=== PATIENT | female | born 1990 | race Caucasian/White ===

== ENCOUNTER 2016-04-02 15:43 | Emergency (ER) | payer BC ==
[~2016-04-02] VITALS: Ht 175.3 cm; Wt 76.3 kg
[2016-04-02 15:48] VITALS: Ht 175.3 cm; Wt 76.3 kg
[2016-04-02] MEDS ORDERED: LAMO150T PO (17:30)
[2016-04-02] MEDS ORDERED: AMPH10TA2 PO (17:30)
[2016-04-02] MEDS ORDERED: LISD70CA PO (17:30)
[2016-04-02 17:47] LABS: URINE APPEARANCE CLEAR (CLEAR); URINE BILIRUBIN NEG (NEG); URINE COLOR YELLOW; URINE NITRITE NEG (NEG); URINE SPECIFIC GRAVITY 1.001 (1.000-1.030); UROBILINOGEN NEG (NEG); ZZUR CULT IF INDIC CLEAN CATCH NO
[2016-04-02 17:49] LABS: MANUAL MICROSCOPIC REQUIRED? NO; REVIEW REQ? NO
[2016-04-02] MEDS ORDERED: FLUCONAZOLE 50 MG TAB PO ONE (18:30)
[2016-04-02] MEDS ORDERED: FLUC150T PO (18:40)
--- NOTE | 2016-04-02 18:40 | EMERGENCY ROOM VISIT NOTE ---
History First contact with patient: 16:50 Chief Complaint: RASH Stated Complaint: MEDICATION REACTION, DRY/ITCHY EYES, RASH History of Present Illness The patient is a 25 year old female who presents to the Emergency Room with complaints of dry eyes and mouth as well as a possible yeast infection. The patient reports that she is taking Lamictal and has been titrating her dose up for the past 6 weeks. The patient recently switched to 150 mg per day. She states that since then, she has felt that her eyes were dry and the skin around her mouth has been dry. She reports she looked up the side effects online and was concerned because Lamictal can cause rashes. The patient also reports that she has had vaginal itching and irritation consistent with prior yeast infections. She has been taking Azo [id number] for the symptoms without relief. She is sexually active but states that she uses condoms and does not believe that she has any STIs. She denies any abnormal vaginal discharge or abdominal pain. She denies fevers/chills. The patient does report a history of eczema. Review of Systems A complete 10-point Review of Systems was discussed with the patient, with pertinent positives and negatives listed in the History of Present Illness. All remaining Review of Systems questions can be considered negative unless otherwise specified. Past Medical/Surgical History Medical Problems: (1) History of migraine (2) History of mood disorder Social History Smoking Status: Never Smoker Alcohol Use: occasionally Drug Use: none Marital Status: single Housing Status: lives with roommate Occupation Status: [employer] student Current/Historical Medications Scheduled Fluconazole (Diflucan), 150 MG PO DAILY Lamotrigine (Lamictal), 150 MG PO DAILY Lisdexamfetamine Dimesylate (Vyvanse), 70 MG PO DAILY Scheduled PRN Amphetamine-Dextroamphetamine 10MG (Adderall 10MG), 10 MG PO DAILY PRN for Allergies Coded Allergies: No Known Allergies (Unverified , 05/09/15) Physical Exam Vital Signs Date Time Temp Pulse Resp B/P Pulse Ox O2 Delivery O2 Flow Rate FiO2 04/02/16 18:47 36.9 78 18 136/90 99 04/02/16 18:31 78 18 136/90 99 Room Air 04/02/16 15:48 36.9 92 16 126/90 97 Room Air Physical Exam VITALS: Vitals are noted on the nurse's note and reviewed by myself. Vital signs stable. GENERAL: This is a 25-year-old female, in no acute distress, nondiaphoretic, well-developed well-nourished. SKIN: Capillary reflex less than 2 seconds. The skin of the face does appear to be slightly dry. HEENT: Normocephalic. PERRLA. No conjunctival injection. EOMI. Nares patent. Mucous membranes moist. Neck is supple without nuchal rigidity. HEART: Regular rate and rhythm without murmurs gallops or rubs. LUNGS: Clear to auscultation. ABDOMEN: Soft, nontender to palpation. PELVIC: External genitalia unremarkable. No abnormal lesions. There is white discharge within the vaginal vault. No evidence of cervicitis. NEURO: Patient was alert and oriented to person place and time. Medical Decision & Procedures Laboratory Results Test 04/02/16 17:30 04/02/16 18:18 Urine Color YELLOW Urine Appearance CLEAR (CLEAR) Urine pH 6.0 (4.5-7.5) Urine Specific [place] 1.001 (1.000-1.030) Urine Protein NEG (NEG) Urine Glucose (UA) NEG (NEG) Urine Ketones NEG (NEG) Urine Occult Blood NEG (NEG) Urine Nitrite NEG (NEG) Urine Bilirubin NEG (NEG) Urine Urobilinogen NEG (NEG) Urine Leukocyte Esterase NEG (NEG) Urine Test NEG (NEG) Date/Time Source Procedure Growth Status 04/02/16 18:18 Vaginal Swab Trichomonas Preparation - Final Complete Medications Administered Medications (Trade) Dose Ordered Sig/Benjamin Route Start Time Stop Time Status Last Admin Dose Admin Fluconazole (Diflucan Tab) 150 mg NOW ONCE PO 04/02/16 18:30 04/02/16 18:32 DC 04/02/16 18:46 150 MG Medical Decision Differential diagnosis includes eczema, Rick-Sal syndrome, allergic reaction, sexual transmitted infection, vaginal candidiasis, Trichomonas, bacterial vaginosis, among others. The patient was evaluated as above. She has dry facial skin consistent with an eczema flare. There is no evidence of a concerning rash, but the patient was encouraged to return if she has any new rashes or worsening symptoms. Pelvic exam did show evidence of vaginal candidiasis and the patient will be placed on Diflucan. Cultures were obtained and are pending. She was encouraged to follow -up with the prescriber of the Lamictal for any concerns regarding side effects. She verbalized understanding of my assessment and treatment plan and was discharged home in good condition. Impression Primary Impression: Vaginal candidiasis Additional Impression: Eczema Departure Information Dispostion Home / Self-Care Condition GOOD Prescriptions Fluconazole (DIFLUCAN) 150 Mg Tab 150 MG PO DAILY for 1 Day, #1 TAB Prov: Spring Chavez ., DONTAE 04/02/16 Referrals No Doctor, Assigned (PCP) Patient Instructions [facility], [facility] [place] Additional Instructions Follow-up with your psych provider regarding your Lamictal. Return immediately if you have any rashes. Take the second dose of Diflucan in 3 days if you have persistent yeast infection symptoms.
[2016-04-02 18:47] VITALS: BP 136/90; PULSE 78; TEMP 36.9; O2SAT 99
[2016-04-05 01:55] LABS: CHLAMYDIA TRACH RNA*** NOT DETECTED (NOT DETECTED); GC (NEIS GONORRHOEAE)RNA** NOT DETECTED (NOT DETECTED)
== END 2016-04-02 18:49 | disposition home or self-care (01) ==
LOC: C.EDB 15:45 → C.EDC 18:49
DX: B37.3 Candidiasis of vulva and vagina (principal); L30.9 Dermatitis, unspecified

== ENCOUNTER 2016-06-16 12:33 | Emergency (ER) | payer BC ==
[~2016-06-16] VITALS: Ht 172.7 cm; Wt 72.1 kg
[~2016-06-16 12:33] MED LIST: AMPH10TA2 PO; LAMO150T32 PO; LISD70CA PO
[2016-06-16 12:44] VITALS: Ht 172.7 cm; Wt 72.1 kg
[2016-06-16] MEDS ORDERED: SODIUM CHLORIDE 0.9% 1000ML 1,000 ML IV STA (14:53)
[2016-06-16] MEDS ORDERED: ACETAMINOPHEN 325 MG TAB PO STA (14:53)
[2016-06-16] MEDS ORDERED: IBUPROFEN 800 MG TAB PO STA (14:53)
[2016-06-16] MEDS ORDERED: IBUPROFEN 600 MG TAB ONE (15:07)
[2016-06-16] MEDS ORDERED: IBUPROFEN 200 MG TAB ONE (15:07)
[2016-06-16 15:40] LABS: MANUAL MICROSCOPIC REQUIRED? NO; REVIEW REQ? YES; URINE APPEARANCE CLOUDY (CLEAR); URINE BILIRUBIN NEG (NEG); URINE COLOR YELLOW; URINE EPITHELIAL CELL AUTO 20-30 /lpf (0-5); URINE NITRITE POS (NEG); URINE PH 5.5 (4.5-7.5); URINE SPECIFIC GRAVITY 1.013 (1.000-1.030); UROBILINOGEN NEG (NEG); ZZUR CULT IF INDIC CLEAN CATCH YES
[2016-06-16 15:47] LABS: BASO % 0.2 %; BASO ABS # 0.02 K/uL (0-0.2); COMPLETE YES; HEMATOCRIT 34.4 % (37-47); IG% 0.3 %; LYMPH ABS # 1.07 K/uL (1.2-3.4); MEAN CELL VOLUME 87.3 fL (80-100); MEAN CORPUSCULAR HEMOGLOBIN 29.9 pg (25-34); MEAN CORPUSCULAR HGB CONC 34.3 g/dl (32-36); MEAN PLATELET VOLUME 11.2 fL (7.4-10.4); MONO % 10.9 %; NEUT % 79.6 %; PLATELET COUNT 165 K/uL (130-400); RED BLOOD COUNT 3.94 M/uL (4.2-5.4); WHITE BLOOD COUNT 11.83 K/uL (4.8-10.8)
--- NOTE | 2016-06-16 16:00 | DIAGNOSTIC IMAGING REPORT ---
CHEST 2 VIEWS ROUTINE CLINICAL HISTORY: flu like sx cough COMPARISON STUDY: 05/09/2015 FINDINGS: The bones soft tissues and hemidiaphragms are normal. The cardiomediastinal silhouette is normal. The lungs are clear. The pulmonary vasculature is normal. IMPRESSION: Negative chest. Electronically signed by: Alton Ríos M.D. 06/16/2016 3:59 PM Dictated Date/Time: 06/16/2016 3:58 PM
[2016-06-16 16:04] LABS: BUN/CREATININE RATIO 5.1 (10-20); CALCIUM 8.5 mg/dl (8.5-10.1); CREATININE 0.78 mg/dl (0.60-1.20); POTASSIUM 3.4 mmol/L (3.5-5.1)
[2016-06-16 16:07] LABS: ALB/GLOB RATIO 1.1 (0.9-2)
--- NOTE | 2016-06-16 16:20 | EMERGENCY ROOM VISIT NOTE ---
History First contact with patient: 14:36 Chief Complaint: FEVER Stated Complaint: CHILLS,FEVER,DEL RIO,BACK PAIN,WEAKNESS,PAIN UNDER RIBS History of Present Illness The patient is a 25 year old female who presents to the Emergency Room with complaints of flulike symptoms which started yesterday and worsened this morning. The patient reports that she has had body aches, back pain, discomfort under her ribs, and pain in her legs. She reports that she has had fevers up to 100F. She does report some nasal congestion, but denies any coughing, chest pain, shortness of breath, sore throat or earaches. The patient reports that she has been slightly lightheaded, but has had a decreased appetite and has not had much to eat or drink. She rates her discomfort a 10/ 10. She denies any nausea, vomiting, urinary symptoms, change in bowel movements, or neck pain/stiffness. The patient does report a history of urinary tract infections. She has not taken any medication for her pain or fevers. Review of Systems A complete 10-point Review of Systems was discussed with the patient, with pertinent positives and negatives listed in the History of Present Illness. All remaining Review of Systems questions can be considered negative unless otherwise specified. Past Medical/Surgical History Medical Problems: (1) History of migraine (2) History of mood disorder Social History Smoking Status: Never Smoker Alcohol Use: occasionally Drug Use: none Marital Status: single Housing Status: lives with roommate Occupation Status: [employer] student Current/Historical Medications Scheduled Lamotrigine (Lamictal), 150 MG PO DAILY Lisdexamfetamine Dimesylate (Vyvanse), 70 MG PO DAILY Sulfa/Trimethoprim (Bactrim Ds 800MG/160MG), 1 TAB PO BID Scheduled PRN Amphetamine-Dextroamphetamine 10MG (Adderall 10MG), 10 MG PO DAILY PRN for Allergies Coded Allergies: No Known Allergies (Unverified , 06/16/16) Physical Exam Vital Signs Date Time Temp Pulse Resp B/P Pulse Ox O2 Delivery O2 Flow Rate FiO2 06/16/16 17:36 36.7 88 18 110/72 22 06/16/16 17:05 36.7 88 18 110/78 98 Room Air 06/16/16 16:07 37.9 92 20 99 Room Air 06/16/16 14:41 118 18 118/78 06/16/16 12:44 38.2 123 18 121/85 99 Room Air Physical Exam VITALS: Vitals are noted on the nurse's note and reviewed by myself. Vital signs stable. GENERAL: This is a 25-year-old female, in no acute distress, nondiaphoretic, well-developed well-nourished. SKIN: Capillary reflex less than 2 seconds. EYES: PERRLA, EOMs intact. No conjunctival injection. EARS: Tympanic membranes pearly ramos bilaterally, no erythema or effusions. MOUTH: Mucous members moist. Tonsils are not enlarged or erythematous. NECK: Supple, no lymphadenopathy. No meningismus. HEART: Regular rate and rhythm without murmurs gallops or rubs. LUNGS: Clear to auscultation bilaterally without wheezes, rales or rhonchi. No retractions or accessory muscle use. ABDOMEN: Positive bowel sounds x 4. Soft, nondistended, no tenderness to palpation. No guarding or rebound tenderness. MUSCULOSKELETAL: No significant tenderness to palpation. NEURO: Patient was alert and oriented to person place and time. Medical Decision & Procedures ER Provider Diagnostic Interpretation: CHEST 2 VIEWS ROUTINE CLINICAL HISTORY: flu like sx cough COMPARISON STUDY: 05/09/2015 FINDINGS: The bones soft tissues and hemidiaphragms are normal. The cardiomediastinal silhouette is normal. The lungs are clear. The pulmonary vasculature is normal. IMPRESSION: Negative chest. Laboratory Results 06/16/16 15:40 Red Blood Count 3.94, Mean Corpuscular Volume 87.3, Mean Corpuscular Hemoglobin 29.9, Mean Corpuscular Hemoglobin Concent 34.3, Mean Platelet Volume 11.2, Neutrophils (%) (Auto) 79.6, Lymphocytes (%) (Auto) 9.0, Monocytes (%) (Auto) 10.9, Eosinophils (%) (Auto) 0.0, Basophils (%) (Auto) 0.2, Neutrophils # (Auto ) 9.42, Lymphocytes # (Auto) 1.07, Monocytes # (Auto) 1.29, Eosinophils # (Auto ) 0.00, Basophils # (Auto) 0.02 06/16/16 15:40 Test 06/16/16 15:00 06/16/16 15:15 06/16/16 15:40 Influenza Type A Antigen Neg for Influ A (NEG) Influenza Type B Antigen Neg for Influ B (NEG) Urine Color YELLOW Urine Appearance CLOUDY (CLEAR) Urine pH 5.5 (4.5-7.5) Urine Specific [place] 1.013 (1.000-1.030) Urine Protein NEG (NEG) Urine Glucose (UA) NEG (NEG) Urine Ketones NEG (NEG) Urine Occult Blood 1+ (NEG) Urine Nitrite POS (NEG) Urine Bilirubin NEG (NEG) Urine Urobilinogen NEG (NEG) Urine Leukocyte Esterase MODERATE (NEG) Urine WBC (Auto) >30 /hpf (0-5) Urine RBC (Auto) 10-30 /hpf (0-4) Urine Hyaline Casts (Auto) 1-5 /lpf (0-5) Urine Epithelial Cells (Auto) 20-30 /lpf (0-5) Urine Bacteria (Auto) 4+ (NEG) Urine Pathogenic Casts /lpf (0) Urine Test NEG (NEG) White Blood Count 11.83 K/uL (4.8-10.8) Red Blood Count 3.94 M/uL (4.2-5.4) Hemoglobin 11.8 g/dL (12.0-16.0) Hematocrit 34.4 % (37-47) Mean Corpuscular Volume 87.3 fL (80-100) Mean Corpuscular Hemoglobin 29.9 pg (25-34) Mean Corpuscular Hemoglobin Concent 34.3 g/dl (32-36) Platelet Count 165 K/uL (130-400) Mean Platelet Volume 11.2 fL (7.4-10.4) Neutrophils (%) (Auto) 79.6 % Lymphocytes (%) (Auto) 9.0 % Monocytes (%) (Auto) 10.9 % Eosinophils (%) (Auto) 0.0 % Basophils (%) (Auto) 0.2 % Neutrophils # (Auto) 9.42 K/uL (1.4-6.5) Lymphocytes # (Auto) 1.07 K/uL (1.2-3.4) Monocytes # (Auto) 1.29 K/uL (0.11-0.59) Eosinophils # (Auto) 0.00 K/uL (0-0.5) Basophils # (Auto) 0.02 K/uL (0-0.2) RDW Standard Deviation 40.0 fL (36.4-46.3) RDW Coefficient of Variation 12.4 % (11.5-14.5) Immature Granulocyte % (Auto) 0.3 % Immature Granulocyte # (Auto) 0.03 K/uL (0.00-0.02) Anion Gap 11.0 mmol/L (3-11) Est Creatinine Clear Calc Drug Dose 112.2 ml/min Estimated GFR () 123.3 Estimated GFR (Non- 106.4 BUN/Creatinine Ratio 5.1 (10-20) Calcium Level 8.5 mg/dl (8.5-10.1) Total Bilirubin 0.6 mg/dl (0.2-1) Aspartate Amino Transf (AST/SGOT) 7 U/L (15-37) Alanine Aminotransferase (ALT/SGPT) 11 U/L (12-78) Alkaline Phosphatase 50 U/L (45-117) Total Protein 6.4 gm/dl (6.4-8.2) Albumin 3.4 gm/dl (3.4-5.0) Globulin 3.0 gm/dl (2.5-4.0) Albumin/Globulin Ratio 1.1 (0.9-2) Monoscreen NEG (NEG) Medications Administered Medications (Trade) Dose Ordered Sig/Benjamin Route Start Time Stop Time Status Last Admin Dose Admin Sodium Chloride (Nss 1000ml) 1,000 ml @ 999 mls/hr Q1H1M STAT IV 06/16/16 14:53 06/16/16 15:53 DC 06/16/16 15:30 999 MLS/HR Acetaminophen (Tylenol Tab) 650 mg NOW STAT PO 06/16/16 14:53 06/16/16 14:56 DC 06/16/16 15:15 650 MG Ibuprofen (Motrin Tab) 600 mg STK-MED ONCE .ROUTE 06/16/16 15:07 06/16/16 15:11 DC 06/16/16 15:16 600 MG Ibuprofen (Advil Tab) 200 mg STK-MED ONCE .ROUTE 06/16/16 15:07 06/16/16 15:11 DC 06/16/16 15:17 200 MG Ceftriaxone Sodium (Rocephin Inj) 1 gm NOW STAT IV 06/16/16 16:50 06/16/16 16:53 DC 06/16/16 16:58 1 GM Medical Decision Differential diagnosis includes influenza, pneumonia, mononucleosis, UTI, bronchitis, viral illness, among others. The patient was evaluated as above. Labs were drawn and IV access was obtained. Imaging studies were performed and read by radiology as above. The patient was medicated with normal saline solution, Tylenol and ibuprofen. The patient was reassessed multiple times during their stay in the emergency department and remained in stable condition. The patient is a 25-year-old female who presents today complaining of fever and bodyaches. Labs revealed a mild leukocytosis. No concerning anemia or electrolyte abnormality. Chest x-ray was unremarkable. Influenza A and [place] testing was negative. Urinalysis was suggestive of infection, with the presence of nitrites, leukocyte esterase and 4+ bacteria. Given the patient's fever and abdominal discomfort, I did choose to treat her for pyelonephritis. She was given 1 g Rocephin IV and will be placed on Bactrim. Urine was negative. The patient was initially tachycardic but this improved with IV fluids and antipyretics. She was hemodynamically stable. She will follow-up with [facility] or return here for worsening symptoms. Based on the patient's presentation, lab results, and imaging studies, I feel the patient is stable for outpatient treatment. The patient's case was reviewed with Dr. Dsouza, ED attending physician, who agreed with my assessment and treatment plan. Discharge instructions were reviewed with the patient. The patient verbalized understanding of my assessment and treatment plan and was discharged home in good condition. Impression Primary Impression: Urinary tract infection Departure Information Dispostion Home / Self-Care Condition GOOD Prescriptions Sulfa/Trimethoprim (Bactrim Ds 800MG/160MG) Tab 1 TAB PO BID for 12 Days, #24 TAB Prov: Spring Chavez ., DONTAE 06/16/16 Referrals [facility] (PCP) Patient Instructions My [facility] Additional Instructions You were treated today for a fever and probable urinary tract infection. You were prescribed Bactrim to be taken twice daily for 12 days. This is an antibiotic. All antibiotics have the potential to cause diarrhea. Stop this medication and contact a medical provider if you were to develop any significant adverse side effects including: wheezing, shortness of breath, passing out, vomiting, or a diffuse rash. Always take antibiotics as directed and COMPLETE the ENTIRE course regardless of the improvement of your symptoms. For pain and fever control, you can use the following [id number] medicines (if >12 yo): - Regular strength (325mg/tab) Tylenol (acetaminophen) 2 tabs every 4-6 hours as needed. Do not exceed 12 tablets in a 24 hour period. Avoid taking more than 4 grams (4000 mg) of Tylenol per day. This includes any other sources of acetaminophen you may take on a regular basis. - Regular strength (200 mg/tab) Advil (ibuprofen) 3-4 tabs every 6 hours as needed. Do not exceed a dose of 3200 mg per day. Rest and drink plenty of fluids. Call [facility] and schedule an appointment for a recheck in 2 days. Return to the emergency department with worsening back pain, worsening abdominal pain, vomiting, fevers uncontrolled by Tylenol or ibuprofen, or any other new/concerning symptoms. Problem Qualifiers Primary Impression: Urinary tract infection Urinary tract infection type: site unspecified Hematuria presence: with hematuria Qualified Codes: N39.0 - Urinary tract infection, site not specified ; R31.9 - Hematuria, unspecified
[2016-06-16] MEDS ORDERED: CEFTRIAXONE SOD INJ 1 GM ADDVIAL IV STA (16:50)
[2016-06-16] MEDS ORDERED: SULF800T23 PO (16:58)
[2016-06-16] MEDS ORDERED: MoRPHine SULFATE 4 MG/ML 1 ML CARP\\VIAL IV STA (17:14)
[2016-06-16 17:36] VITALS: BP 110/72; PULSE 88; TEMP 36.7; O2SAT 22
--- NOTE | 2016-06-18 13:53 | Pharmacy Progress Note ---
ED Pharmacist Culture FollowUp Date of Service: Jun 18, 2016. Patient was seen in ER on 06/16/16 and dx w/ pyelonephritis/UTI. She was discharged with Rx for Bactrim DS 1 PO BID x 12 days. Urine cx from visit is growing [place]-sensitive E coli. Bactrim will cover this organism. No action required.
== END 2016-06-16 17:38 | disposition home or self-care (01) ==
LOC: C.EDB 12:35
DX: N39.0 Urinary tract infection, site not specified (principal); R31.9 Hematuria, unspecified; R50.9 Fever, unspecified; M54.9 Dorsalgia, unspecified

== ENCOUNTER 2016-06-21 13:15 | Emergency (ER) | payer BC ==
[~2016-06-21] VITALS: Ht 175.3 cm; Wt 71.0 kg
[~2016-06-21 13:15] MED LIST changes: +SULF800T23 PO
[2016-06-21 13:20] VITALS: TEMP 36.8; Ht 175.3 cm; Wt 71.0 kg
[2016-06-21] MEDS ORDERED: CEPH500C PO (13:50)
[2016-06-21] MEDS ORDERED: FLUC150T PO (13:50)
[2016-06-21 13:59] VITALS: BP 117/78; PULSE 88; O2SAT 99
--- NOTE | 2016-06-21 16:43 | EMERGENCY ROOM VISIT NOTE ---
History First contact with patient: 13:37 Chief Complaint: RASH Stated Complaint: RASH History of Present Illness The patient is a 25 year old white female who presents to the Emergency Room with complaints of a red swollen area present on the undersurface of her right buttock. She currently takes Lamictal. She was recently treated for UTI and any infection. She was taking Bactrim. She states she was shaving today and noticed a swollen area underneath her right buttock. She looked in the mirror and saw the red and swollen area. She became concerned about Rick-Sal syndrome and came here to the ED. Denies any fevers, chills, sweats, nausea, vomiting, or discharge. No other areas of involvement. She denies any trauma to the area. No other complaints. Review of Systems REVIEW OF SYSTEM: HEENT: No dizziness, visual problems, hearing loss, or tinnitus. There is no difficulty swallowing and no oral lesions are present. PULMONARY: No cough, shortness of breath, sputum production or hemoptysis. CARDIOVASCULAR: No chest pain, palpitations, shortness of breath or peripheral edema. GASTROINTESTINAL: No diarrhea, constipation, nausea, vomiting, or abdominal pain. GENITOURINARY: No dysuria, frequency, urgency or nocturia. NEUROLOGIC: No weakness, muscle tenderness, epilepsy or history of neurological problems. MUSCULOSKELETAL: No history of joint tenderness/swelling. No history of arthritis or arthralgias. SKIN: No rashes or lesions. PSYCHIATRIC: Positive history of depression and mental illness. ENDOCRINE: No history of diabetes, thyroid disorders, or abnormal hair growth. Past Medical/Surgical History Medical Problems: (1) History of migraine (2) History of mood disorder Family History Noncontributory. Social History Smoking Status: Never Smoker Smokeless Tobacco Use: No Alcohol Use: occasionally Drug Use: none Marital Status: single Housing Status: lives with roommate Occupation Status: [employer] student Current/Historical Medications Scheduled Cephalexin Monohydrate (Keflex), 500 MG PO QID Fluconazole (Diflucan), 150 MG PO DAILY Lamotrigine (Lamictal), 150 MG PO DAILY Lisdexamfetamine Dimesylate (Vyvanse), 70 MG PO DAILY Sulfa/Trimethoprim (Bactrim Ds 800MG/160MG), 1 TAB PO BID Scheduled PRN Amphetamine-Dextroamphetamine 10MG (Adderall 10MG), 10 MG PO DAILY PRN for Allergies Coded Allergies: No Known Allergies (Unverified , 06/16/16) Physical Exam Vital Signs Date Time Temp Pulse Resp B/P Pulse Ox O2 Delivery O2 Flow Rate FiO2 06/21/16 13:59 88 18 117/78 99 06/21/16 13:20 36.8 84 16 127/79 94 Room Air Pain Rating (0-10): 0 Physical Exam Gen.: Well-developed, well-nourished, young white female, in no acute distress. Sitting on a bed. Alert and oriented. Skin:Warm and dry with good turgor. He has an erythematous area approximately 3 cm x 2 cm on the undersurface of her right buttock. It is medial on the buttock but lateral to the rectum and did not involve the rectum. There are a few small shaved hairs in this area. Edematous, but not fluctuant. No palpable abscess underneath. It is not tender to touch or warm. It does look like a hive. No palpable abscess underneath. No drainage. No ecchymosis. The patient is not diaphoretic. No abrasions. Musculoskeletal: Gross motor function of the lower extremities is intact and unremarkable. Medical Decision & Procedures ED Course Patient was educated regarding today's findings. Conservative care measures were discussed. I would like her to avoid shaving the area for the next several days. Apply warm moist compresses to the area frequently. Prescription was given for Keflex 500 mg 4 times a day 6 days. Follow-up with her PCP for reexamination or return to the ED if symptoms should become worse. There is nothing to drain at this time. Tylenol and ibuprofen as needed for any mild discomfort. She may use Benadryl for any itching. She was reassured that I do not suspect Rick-Sal syndrome or fungal infection. Medical Decision Possibility of insect bite, ingrown hair, subcutaneous abscess, fungal infection , medication reaction, and cellulitis was considered. Impression Primary Impression: Cellulitis Departure Information Dispostion Home / Self-Care Condition GOOD Prescriptions Fluconazole (DIFLUCAN) 150 Mg Tab 150 MG PO DAILY, #1 TAB Prov: Ant Lincoln,P.A. 06/21/16 Cephalexin Monohydrate (Keflex) 500 Mg Cap 500 MG PO QID, #24 CAP Prov: Ant Lincoln,P.A. 06/21/16 Referrals No Doctor, Assigned [facility] (PCP) Forms WORK / SCHOOL INSTRUCTIONS, HOME CARE DOCUMENTATION FORM, IMPORTANT VISIT INFORMATION Patient Instructions My [facility] Additional Instructions Stop your other antibiotic Start Keflex one pill 4 times a day which will cover both the skin and the urine Warm moist compresses to the area several times per day Follow-up with your PCP or return to the ED for any acute worsening of symptoms Tylenol and ibuprofen every 6 hours as needed for discomfort Benadryl can be used every 6 hours as needed for severe itching Take Diflucan 1 tablet orally if a yeast infection develops Problem Qualifiers Primary Impression: Cellulitis Site of cellulitis: buttock Qualified Codes: L03.317 - Cellulitis of buttock
== END 2016-06-21 14:00 | disposition home or self-care (01) ==
LOC: C.EDB 13:16 → C.EDD 14:00
DX: L03.317 Cellulitis of buttock (principal)